=== PATIENT | female | born 1980 | race Caucasian/White ===

== ENCOUNTER 2018-12-08 23:52 | Emergency (ER) | payer OTHER ==
[~2018-12-08] VITALS: Ht 160 cm; Wt 79.4 kg
[2018-12-09 00:15] VITALS: Ht 160 cm; Wt 79.4 kg
[2018-12-09 02:20] VITALS: BP 116/88
== END 2018-12-09 02:20 | disposition home or self-care (01) ==
LOC: ED 23:52
DX: S09.8XXA Other specified injuries of head, initial encounter (principal); F10.129 Alcohol abuse with intoxication, unspecified; W18.30XA Fall on same level, unspecified, initial encounter; Y93.89 Activity, other specified; Y92.89 Other specified places as the place of occurrence of the external cause; Y99.8 Other external cause status